=== PATIENT | female | born 1955 | race Hispanic/Latino ===

== ENCOUNTER 2016-12-30 14:42 | Inpatient (IN) | payer OTHER ==
--- NOTE | 2016-12-30 15:25 | ED PDOC ---
HPI: General Adult Time Seen by Provider: 12/30/16 15:00 Chief Complaint (Nursing): Weakness/Neurological Deficit Chief Complaint (Provider): Left sided numbness History Per: Patient History/Exam Limitations: no limitations Onset/Duration Of Symptoms: Days (2) Have you had recent travel within the past 21 days to any of the following countries: [place], [place], [place] or [place]?: No Current Symptoms Are (Timing): Still Present Severity: Moderate Additional History Per: Patient Additional Complaint(s): The pt is a 61yo female with PMHx of DM, hyperthyroidism, 3x hernia repair, left wrist surgery, presents to the ED for evaluation of left sided numbness for the past 2 days. Pt denies any pain or trauma to the area. She reports associated nausea but denies any vomiting, diarrhea. At present, pt offers no additional medical complaints. Of note, pt is crying in ED due to loss of insurance. PMD: None provided NIHSS Stroke Scale - Date/Time Evaluation Performed Date Performed: 12/30/16 Time Performed: 15:20 When Was NIHSS Performed: Baseline - How Severe is the Stroke Level of Consciousness: 0=Alert LOC to Questions: 0=Both comments correct LOC to commands: 0=Obeys both correctly Best Gaze: 0=Normal Visual: 0=No visual loss Facial: 0=Normal Motor Arm - Left: 0=No drift Motor Arm - Right: 0=No drift Motor Leg - Left: 0=No drift Motor Leg - Right: 0=No drift Limb Ataxia: 0=Absent Sensory: 0=Normal Best Language: 0=No aphasia Dysarthia: 0=Normal articulation Extinction & Inattention (Neglect): 0=Normal, no object Score: 0 rTPA Inclusion/Exclusion - Refusal of Treatment Patient Refused Treatment: No - Inclusion Criteria for Altepase Patient is 18 years or Older: Yes The Clinical Diagnosis of Ischemic Stroke That is Causing a Potentially Disabling Neurological Deficit: No Time of Onset is Well Established to be Less Than 270 Minute Before Treatment Would Begin: No Risk/Benefit Discussed With Patient/Family Member Present: No - Exclusion Criteria for Altepase Active Internal Bleeding: No Known Bleeding Diathesis Including but Not Limited to: Platelets Below 100,000/ mm,PTT Above 40 sec After Heparin Use, Current Use of Oral Anitcoagulant With INR Greater Than 1.7 or PT Greater Than 15 secs: No Evidence of an Intracranial Hemorrhage: No Evidence of Major Acute Infarct With Signs Greater Than 1/3 MCA Territory: No Suspicion of Subarachnoid Hemorrhage on Pretreatment Evaluation Even if CT Head Negative For Hemorrhage: No Past Medical History Reviewed: Historical Data, Nursing Documentation, Vital Signs Vital Signs: Last Vital Signs Temp 97.3 F L 12/31/16 12:20 Pulse 72 12/31/16 12:20 Resp 18 12/31/16 12:20 BP 138/83 12/31/16 12:20 Pulse Ox 94 L 12/31/16 12:20 - Medical History PMH: Diabetes, Hypothyroidism - Surgical History Surgical History: Hernia Repair ( x 3 as child) Other surgeries: left wrist surgery - Family History Family History: States: Unknown Family Hx - Living Arrangements Living Arrangements: With Family - Social History Current smoker - smoking cessation education provided: No Alcohol: None Drugs: Denies - Home Medications Home Medications: Ambulatory Orders Medication Instructions Recorded Cinnamon Bark [Cinnamon] 1 cap PO DAILY 12/30/16 Aspirin [Aspirin Chewable] 81 mg PO DAILY #30 chew 12/31/16 Atorvastatin [Lipitor] 80 mg PO HS #30 tab 12/31/16 Clopidogrel [Plavix] 75 mg PO DAILY #30 tab 12/31/16 Levothyroxine [Synthroid] 200 mcg PO DAILY #30 tab 12/31/16 Sitagliptin Phos/Metformin HCl 1 tab PO DAILY #30 tbmp.24hr 12/31/16 [Janumet Xr 50-1,000 mg Tablet] - Allergies Allergies/Adverse Reactions: Allergies Allergy/AdvReac Type Severity Reaction Status Date / Time No Known Allergies Allergy Verified 10/22/15 13:20 Review of Systems ROS Statement: Except As Marked, All Systems Reviewed And Found Negative Gastrointestinal: Positive for: Nausea. Negative for: Vomiting, Diarrhea Neurological: Positive for: Numbness (left sided body numbness) Physical Exam - Reviewed Nursing Documentation Reviewed: Yes Vital Signs Reviewed: Yes - Physical Exam Appears: Positive for: Well, Non-toxic, No Acute Distress Head Exam: Positive for: ATRAUMATIC, NORMAL INSPECTION, NORMOCEPHALIC Skin: Positive for: Normal Color, Warm, DRY Eye Exam: Positive for: EOMI, Normal appearance, PERRL Cardiovascular/Chest: Positive for: Regular Rate, Rhythm Respiratory: Positive for: Normal Breath Sounds. Negative for: Respiratory Distress Extremity: Positive for: Normal ROM, Other (5/5 motor strength in all extremities). Negative for: Deformity Neurologic/Psych: Positive for: Alert, Oriented. Negative for: Motor/Sensory Deficits - Laboratory Results Result Diagrams: 12/31/16 04:10 12/31/16 04:10 - ECG ECG: Positive for: Interpreted By Me, Viewed By Me ECG Rhythm: Positive for: Sinus Rhythm. Negative for: ST/T Changes Rate: 75 O2 Sat by Pulse Oximetry: 100 (RA) Pulse Ox Interpretation: Normal Medical Decision Making Medical Decision Making: Time: 1520 Impression: Left sided numbness Plan: -- CT Head -- EKG -- CMP -- Troponin -- CBC --Reassess Time: 1641 Swallow screen and Aspirin [address] Head Impression: Acute nonhemorrhagic infarct right thalamus/associated deep white matter. This represents a new finding compared to prior studies. New line communication of critical results: I discussed the findings directly with Dr. Genao at 16:41. -- Since pt has no insurance pt to be admitted under hospitalist. Paged neuro Dr. Nelson neurology roll tension tester Time: 1714 Dr. Nelson aware of case. Spoke to hospitalist, accepted patient for admission. dx left sided weakness, stroke pt aware of CT report and nee dto be hospitalized. Scribe Attestation: Documented by Cici Barrera acting as a scribe for Hailey Genao MD. Provider Attestation: All medical record entries made by the Scribe were at my direction and personally dictated by me. I have reviewed the chart and agree that the record accurately reflects my personal performance of the history, physical exam, medical decision making, and the department course for this patient. I have also personally directed, reviewed, and agree with the discharge instructions and disposition. Disposition - Clinical Impression Clinical Impression: Weakness of one side of body - Patient ED Disposition Is Patient to be Admitted: Yes - Disposition Disposition Time: 17:00 Condition: GOOD
[2016-12-30 15:43] LABS: BASO # 0.1 K/uL (0.0-0.2); BASO % 0.9 % (0.0-2.0); EOS # 0.2 K/uL (0.0-0.7); EOS % 1.8 % (0.0-4.0); HEMATOCRIT 39.7 % (34.0-47.0); LYMPH # 1.6 K/uL (1.0-4.3); LYMPH % 17.9 % (20.0-40.0); MEAN CELL VOLUME 83.3 fl (81.0-99.0); MEAN CORPUSCULAR HEMOGLOBIN 28.4 pg (27.0-31.0); MEAN PLATELET VOLUME 9.3 fl (7.2-11.7); MONO # 0.3 K/uL (0.0-0.8); MONO % 3.9 % (0.0-10.0); NEUT # 6.6 K/uL (1.8-7.0); NEUT % 75.5 % (50.0-75.0); NRBC % 0.1 % (0.0-0.0); RED CELL DISTRIBUTION WIDTH 14.5 % (11.5-14.5); WHITE BLOOD COUNT 8.8 K/uL (4.8-10.8)
--- NOTE | 2016-12-30 16:43 | CT ---
PROCEDURE: CT HEAD WITHOUT CONTRAST. HISTORY: L facial numbness for two days COMPARISON: 10/22/2015. TECHNIQUE: Axial computed tomography images were obtained through the head/brain without intravenous contrast. Coronal and sagittal reconstructed images. Radiation dose: Total exam DLP = 821.99 mGy-cm. FINDINGS: HEMORRHAGE: No intracranial hemorrhage. BRAIN: Focal area of diminished attenuation new finding in the right thalamus and associated deep white matter, please refer to series 4, image 26. This likely a nonhemorrhagic, acute infarct. VENTRICLES: Unremarkable. No hydrocephalus. CALVARIUM: Unremarkable. PARANASAL SINUSES: Unremarkable as visualized. No significant inflammatory changes. MASTOID AIR CELLS: Unremarkable as visualized. No inflammatory changes. OTHER FINDINGS: None. IMPRESSION: Acute nonhemorrhagic infarct right thalamus/associated deep white matter. This represents a new finding compared to prior studies. New line communication of critical results: I discussed the findings directly with Dr. Genao at 16:41.
[2016-12-30 18:06] LABS: ALB/GLOB RATIO 1.1 (1.0-2.1); ALKALINE PHOSPHATASE 84 U/L (38-126); ALT/SGPT 35 U/L (9-52); AST/SGOT 57 U/L (14-36); BILIRUBIN,TOTAL 0.7 mg/dl (0.2-1.3); BLOOD UREA NITROGEN 17 mg/dl (7-17); CALCIUM 9.6 mg/dL (8.4-10.2); CARBON DIOXIDE 22 mmol/L (22-30); CHLORIDE 105 mmol/L (98-107); GFR AFRICAN-AMERICAN > 60; GLUCOSE,RANDOM 131 mg/dL (65-105); SODIUM 142 mmol/l (132-148)
--- NOTE | 2016-12-30 18:13 | CP.PCM.HP ---
History of Present Illness - History of Present Illness History of Present Illness: CC: left sided weakness HPI: 61 year old female with PMH NIDDMII, Hypothyroid, Hyperlipidemia presents with a two day history of mild left sided numbness which started while she was walking, she noticed feeling off balance and being "wobbly", associated with mild facial droop and slight slurred speech. Today the patient noticed she was walking "crooked" and came in for evaluation. On exam patient is awake, alert, oriented x3, no aphasia, has 4/5 strength in all 4 extremities, no pronator drift, no visual defects, does have a very slight L facial droop and slight slurred speech, in addition to mild loss of sensation on the L side face/ extremities, NIHSS 3. CT head Acute nonhemorrhagic infarct R thalamus/ associated with deep white matter. Neurology consult called in ER, Dr. Nelson appreciated and followed. +ASA, plavix, continue Statin. Vitals stable, NAD. ROS: per HPI all other systems neg by me PMSH: NIDDMII, Hypothyroid, Hyperlipidemia FH: denies SH: denies tobacco etoh ivdu Meds: Per reconciliation Allergies: NKDA Vitals Temp Pulse Resp BP Pulse Ox 98.1 F 75 17 140/76 100 12/30/16 14:49 12/30/16 17:35 12/30/16 17:35 12/30/16 17:35 12/30/16 18:06 Exam GEN: WDWN, alert, awake, cooperative HEENT: EOMI, PERRL, NCAT Neck: soft, supple, no lymphadenopathy Heart: RRR +S1S2 no MRG Lung: CTAB no wheezes, rales, rhonchi Abd: soft, nontender, no mass, no HSM, BS x4 Ext: +pedal pulses, no edema Neuro: awake, alert, oriented x3, no aphasia, has 4/5 strength in all 4 extremities, no pronator drift, no visual defects, does have a very slight L facial droop and slight slurred speech, in addition to mild loss of sensation on the L side face/extremities, NIHSS 3 Skin: warm, dry Psych: normal mood, normal affect labs 12/30/16 15:30 12/30/16 17:[address] head Acute nonhemorrhagic infarct R thalamus/associated with deep white matter. ACTIVE MEDS Atorvastatin [Lipitor] 80 mg PO HS Insulin Lispro [humALOG] See Protocol SC ACHS Aspirin [Aspirin Chewable] 81 mg PO DAILY Clopidogrel [Plavix] 75 mg PO DAILY Enoxaparin [Lovenox] 40 mg SC DAILY Levothyroxine [Synthroid] 150 mcg PO DAILY MetFORMIN [glucOPHAGE] 1,000 mg PO DAILY SITagliptin [Januvia] 50 mg PO DAILY ASSESSMENT AND PLAN 61 year old female with PMH NIDDMII, Hypothyroid, Hyperlipidemia presents with a two day history of mild left sided numbness which started while she was walking, she noticed feeling off balance and being "wobbly", associated with mild facial droop and slight slurred speech. Today the patient noticed she was walking "crooked" and came in for evaluation. On exam patient is awake, alert, oriented x3, no aphasia, has 4/5 strength in all 4 extremities, no pronator drift, no visual defects, does have a very slight L facial droop and slight slurred speech, in addition to mild loss of sensation on the L side face/ extremities, NIHSS 3. CT head Acute nonhemorrhagic infarct R thalamus/ associated with deep white matter. Neurology consult called in ER, Dr. Nelson appreciated and followed. +ASA, plavix, continue Statin. Vitals stable, NAD. Acute CVA very slight L facial droop and slight slurred speech, in addition to mild loss of sensation on the L side face/extremities NIHSS 3 Neurology consult appreciated and followed CT Head Acute nonhemorrhagic infarct R thalamus/associated with deep white matter. ASA 81 MG PO DAILY PLAVIX 75 MG PO DAILY LIPITOR 80 MG PO DAILY PT/OT/SPEECH therapy NIDDMII stable diabetic diet continue januvia and metformin accuchecks ISS Hypothyroid stable continue levothyroxine Hyperlipidemia stable continue LIPITOR 80 mg po daily DVT ppx lovenox Present on Admission - Present on Admission Any Indicators Present on Admission: No Past Patient History - Past Social History Alcohol: None Drugs: Denies - CARDIAC Hx Cardiac Disorders: No - PULMONARY Hx Respiratory Disorders: No - NEUROLOGICAL Hx Neurological Disorder: No - ENDOCRINE/METABOLIC Hx Hypothyroidism: Yes - PSYCHIATRIC Hx Substance Use: No - SURGICAL HISTORY Hx Surgeries: No Other/Comment: Hernia repair - ANESTHESIA Hx Anesthesia: Yes Hx Anesthesia Reactions: No Meds Allergies/Adverse Reactions: Allergies Allergy/AdvReac Type Severity Reaction Status Date / Time No Known Allergies Allergy Verified 10/22/15 13:20 Results - Vital Signs Recent Vital Signs: Last Vital Signs Temp 98.1 F 12/30/16 14:49 Pulse 75 12/30/16 17:35 Resp 17 12/30/16 17:35 BP 140/76 12/30/16 17:35 Pulse Ox 97 12/30/16 17:35 - Labs Result Diagrams: 12/30/16 15:30
--- NOTE | 2016-12-30 18:29 | RAD ---
HISTORY: Stroke. Technique: Single view portable erect @ 17:30. COMPARISON: 10/09/2011. FINDINGS: LUNGS: No active pulmonary disease. PLEURA: No significant pleural effusion identified, no pneumothorax apparent. CARDIOVASCULAR: Cardiomegaly. No evidence of acute, significant cardiovascular disease. OSSEOUS STRUCTURES: No significant abnormalities. VISUALIZED UPPER ABDOMEN: Normal. OTHER FINDINGS: None. IMPRESSION: No active disease. No significant interval change compared to the prior examination(s).
--- NOTE | 2016-12-30 20:37 | CON ---
DATE: 12/30/2016 REASON FOR CONSULTATION: Stroke. CHIEF COMPLAINT: The patient was brought in to [facility] with a history of left-sided numbness and weakness. From neurological point of view, I was called in to evaluate her for further management. HISTORY OF PRESENT ILLNESS: The patient is a 61-year-old right-handed female in her usual state of health, presenting with subacute process of lightheadedness, dizziness, losing balance. She did not take herself. For the last 2 days, she has noticed herself left-sided numbness and feels like drunk while she is walking. She denies any speech problems. She denies any loss of consciousness. She denies any involuntary movements associating with this problem. PAST MEDICAL HISTORY: Diabetes mellitus, hypertension, dyslipidemia, hypothyroidism. ALLERGIES: No known allergies. PERSONAL HISTORY: No history of smoking or alcohol use. REVIEW OF SYSTEMS: As per H and P. MEDICATIONS: Aspirin, metformin, insulin, Januvia, Lipitor, Lovenox and Synthroid. PHYSICAL EXAMINATION: VITAL SIGNS: Blood pressure 119/71, mean arterial pressure is 70, respiratory rate 16, temperature afebrile. NECK: Supple. No carotid bruit. HEART: Sounds regular. CHEST: Fair air entry. EXTREMITIES: No edema in legs. NEUROLOGIC EXAMINATION: MENTAL STATUS EXAMINATION: She is examined in the presence of her family members. She is awake, alert, oriented to person, place, and time. Speech is clear. Naming, repetition, fluency, comprehension all within normal. CRANIAL NERVE EXAMINATION: Visual field intact, pupils reactive to light. Extraocular movements are normal. No nystagmus, no facial sensory deficit. Mild facial asymmetry manifesting as a flattening of the left nasolabial fold. Hearing is normal. Tongue is midline. Good gag. MOTOR EXAMINATION: Outstretched hands with eyes closed, no drift noted. Power is symmetric on either side. DEEP TENDON REFLEXES: Biceps, brachioradialis, triceps, knees are 1+. Both ankles are absent. Plantars are upgoing on the left side, right side was downgoing. SENSORY EXAMINATION: Significantly decreased pinprick and pain over her left arm and the left leg. GAIT: She was not able to march in one place. She was leaning to the left side. CONCLUSION: Upon reviewing her history and neurological examination, the patient is presenting with right subcortical dysfunction manifesting with hemisensory deficit and poor tandem. 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 Considering her risk factors including age, sex, high blood pressure, diabetes mellitus, that is all related to small vessel disease. WORKUP: CT of the head reviewed, showed right thalamic infarct. EKG normal sinus rhythm. BLOOD WORKUP: WBC 8.8, hemoglobin 13.5, hematocrit 39.7, platelets 237. Sodium 142, potassium 4.0, chloride 105, bicarbonate 22, BUN 17, creatinine 1.0 , GFR more than 60, calcium of 9.6. RECOMMENDATIONS: 1. I agree with aspirin and Plavix with statin and angiotensin receptor blockers to stabilize neurovascular endothelium. 2. Carotid Doppler/echo/EEG and MRI of the brain is also scheduled. 3. Out of bed and physical therapy. 4. Diabetic control, weight control and patient may need a polysomnogram to rule out hidden sleep related breathing disorder, which can be done as an outpatient. The patient's condition has been well discussed with the family members present. The patient will be followed closely with you. aSji Nelson MD cc: [id number] TT: 12/30/2016 20:37:14 Confirmation # [id number] Dictation # [id number] magalys LORD
[2016-12-30 21:35] LABS: THYROID STIMULATING HORMONE 26.4 mIU/ML (0.46-4.68)
[2016-12-30] MEDS: Insulin Lispro (humaLOG) 100 Units/ml Inj SC SCH (22:00)
[2016-12-31 05:28] LABS: BLOOD UREA NITROGEN 16 mg/dl (7-17); CALCIUM 9.3 mg/dL (8.4-10.2); CARBON DIOXIDE 26 mmol/L (22-30); CHLORIDE 101 mmol/L (98-107); GFR AFRICAN-AMERICAN > 60; GLUCOSE,RANDOM 143 mg/dL (65-105); SODIUM 135 mmol/l (132-148)
[2016-12-31 05:35] LABS: MEAN CELL VOLUME 83.7 fl (81.0-99.0); MEAN CORPUSCULAR HEMOGLOBIN 27.8 pg (27.0-31.0); MEAN CORPUSCULAR HGB CONC 33.3 g/dL (33.0-37.0); RED CELL DISTRIBUTION WIDTH 14.3 % (11.5-14.5); WHITE BLOOD COUNT 7.1 K/uL (4.8-10.8)
[2016-12-31] MEDS: Insulin Lispro (humaLOG) 100 Units/ml Inj SC SCH (06:43)
[2016-12-31 07:02] LABS: HOMOCYSTEINE 17.6 umol/L (<10.4)
[2016-12-31 08:15] VITALS: RESP 18
[2016-12-31] MEDS ORDERED: METFORMIN HCL PO SCH (09:00)
[2016-12-31] MEDS ORDERED: SITAGLIPTIN PHOS PO SCH (09:00)
[2016-12-31] MEDS ORDERED: Levothyroxine 150 MCG TAB PO SCH (09:00)
[2016-12-31] MEDS ORDERED: [UNRECOGNIZED DRUG - OTHER] PO SCH (09:00)
[2016-12-31] MEDS ORDERED: Enoxaparin 40 mg Syringe SC SCH (09:00)
--- NOTE | 2016-12-31 09:59 | MRI ---
PROCEDURE: MRI BRAIN WITHOUT CONTRAST HISTORY: stroke, numbness COMPARISON: Comparison is made to the previous CT dated 12/30/2016 TECHNIQUE: Multiplanar, multisequence MR images of the brain were obtained without intravenous contrast enhancement. FINDINGS: HEMORRHAGE: None DWI: There is focal diffusion restriction at the right thalamus consistent with acute/early subacute infarct. BRAIN PARENCHYMA: Small foci of encephalomalacia again seen at the left basal ganglia/ internal capsule suggestive of chronic lacunar infarcts. Mild atrophy and mild chronic microvascular white matter ischemic disease are again seen. VENTRICLES: Unremarkable. No hydrocephalus. CRANIUM: Unremarkable. ORBITS: Grossly unremarkable. PARANASAL SINUSES/MASTOIDS: No evidence of sinusitis. Partial opacification of the right mastoid. VASCULAR SYSTEM: Skull base flow voids intact. OTHER FINDINGS: None. IMPRESSION: Focal diffusion restriction at the right thalamus consistent with acute/ early subacute infarct . Old lacunar infarcts at the left basal ganglia. Mild atrophy and mild chronic microvascular white matter ischemic disease.
--- NOTE | 2016-12-31 10:22 | CP.PCM.DIS ---
Provider - Provider Date of Admission: 12/30/16 17:10 Attending physician: Evelyn Ramirez DO Primary care physician: None Consults: Neuro consult PT/Ot consult Time Spent in preparation of Discharge (in minutes): 20 Hospital Course - Lab Results Lab Results: Most Recent Lab Values WBC 7.1 K/uL (4.8-10.8) 12/31/16 04:10 RBC 4.42 Mil/uL (3.80-5.20) 12/31/16 04:10 Hgb 12.3 g/dL (12.0-16.0) 12/31/16 04:10 Hct 37.0 % (34.0-47.0) 12/31/16 04:10 MCV 83.7 fl (81.0-99.0) 12/31/16 04:10 MCH 27.8 pg (27.0-31.0) 12/31/16 04:10 MCHC 33.3 g/dL (33.0-37.0) 12/31/16 04:10 RDW 14.3 % (11.5-14.5) 12/31/16 04:10 Plt Count 200 K/uL (130-400) 12/31/16 04:10 MPV 9.3 fl (7.2-11.7) 12/30/16 15:30 Neut % (Auto) 75.5 % (50.0-75.0) H 12/30/16 15:30 Lymph % (Auto) 17.9 % (20.0-40.0) L 12/30/16 15:30 [place] % (Auto) 3.9 % (0.0-10.0) 12/30/16 15:30 Eos % (Auto) 1.8 % (0.0-4.0) 12/30/16 15:30 Baso % (Auto) 0.9 % (0.0-2.0) 12/30/16 15:30 Neut # 6.6 K/uL (1.8-7.0) 12/30/16 15:30 Lymph # 1.6 K/uL (1.0-4.3) 12/30/16 15:30 [place] # 0.3 K/uL (0.0-0.8) 12/30/16 15:30 Eos # 0.2 K/uL (0.0-0.7) 12/30/16 15:30 Baso # 0.1 K/uL (0.0-0.2) 12/30/16 15:30 ESR 20 mm/hr (0-30) 12/30/16 20:06 Sodium 135 mmol/l (132-148) 12/31/16 04:10 Potassium 4.0 MMOL/L (3.6-5.0) 12/31/16 04:10 Chloride 101 mmol/L (98-107) 12/31/16 04:10 Carbon Dioxide 26 mmol/L (22-30) 12/31/16 04:10 Anion Gap 12 (10-20) 12/31/16 04:10 BUN 16 mg/dl (7-17) 12/31/16 04:10 Creatinine 1.1 mg/dL (0.7-1.2) 12/31/16 04:10 Est GFR ( Amer) > 60 12/31/16 04:10 Est GFR (Non-Af Amer) 51 12/31/16 04:10 POC Glucose (mg/dL) 145 mg/dL (65-110) H 12/31/16 05:36 Random Glucose 143 mg/dL (65-105) H 12/31/16 04:10 Calcium 9.3 mg/dL (8.4-10.2) 12/31/16 04:10 Total Bilirubin 0.7 mg/dl (0.2-1.3) 12/30/16 17:54 AST 57 U/L (14-36) H 12/30/16 17:54 ALT 35 U/L (9-52) 12/30/16 17:54 Alkaline Phosphatase 84 U/L (38-126) 12/30/16 17:54 Troponin I < 0.0120 ng/mL (0.00-0.120) 12/30/16 17:54 Total Protein 8.0 G/DL (6.3-8.2) 12/30/16 17:54 Albumin 4.2 g/dL (3.5-5.0) 12/30/16 17:54 Globulin 3.8 gm/dL (2.2-3.9) 12/30/16 17:54 Albumin/Globulin Ratio 1.1 (1.0-2.1) 12/30/16 17:54 Vitamin B12 279 pg/mL (239-931) 12/30/16 17:53 Homocysteine 17.6 umol/L ( <10.4) H 12/30/16 20:06 TSH 3rd Generation 26.40 mIU/ML (0.46-4.68) H 12/30/16 17:53 - Hospital Course Hospital Course: 61 year old female with PMH NIDDMII, Hypothyroid, Hyperlipidemia presented with two day history of mild left sided numbness which started while she was walking , she noticed feeling off balance and being "wobbly", associated with mild facial droop and slight slurred speech. Today the patient noticed she was walking "crooked" and came in for evaluation. On exam patient is awake, alert, oriented x3, no aphasia, has 4/5 strength in all 4 extremities, no pronator drift, no visual defects, did have a very slight L facial droop and slight slurred speech, in addition to mild loss of sensation on the L side face/ extremities, NIHSS 3. CT head showed Acute nonhemorrhagic infarct R thalamus/ associated with deep white matter disease . Neurology consult called in ER, Dr. Nelson appreciated and followed. Patient started on +ASA, plavix, Statin. MRI brain showed : Focal diffusion restriction at the right thalamus consistent with acute/ early subacute infarct . Old lacunar infarcts at the left basal ganglia. Mild atrophy and mild chronic microvascular white matter ischemic disease. Patient doing well, hemodynamically stable, facial drop resolved . PT / Ot consulted . Patient will be discharged home. physical therapy as out patient. Counselled on diet , exercise complinace with medications. not to return to work for 2 weeks Follow upw [facility] in [address] Head Acute nonhemorrhagic infarct R thalamus/associated with deep white matter. Continue ASA ,PLAVIX , statin 2.NIDDMII diabetic diet continue januvia and metformin 3.Hypothyroid uncontrolled Incresaed Synthroid to 200 mcg PO daily continue 4.Hyperlipidemia uncontrolled Cholesterol 347 cholesterol 451 LDL 190 continue LIPITOR 80 mg po daily Discharge Exam - Head Exam Head Exam: ATRAUMATIC, NORMAL INSPECTION, NORMOCEPHALIC - Eye Exam Eye Exam: EOMI, Normal appearance, PERRL Pupil Exam: NORMAL ACCOMODATION - ENT Exam ENT Exam: Mucous Membranes Moist, Normal Exam - Neck Exam Neck exam: Full Rom, Normal Inspection - Respiratory Exam Respiratory Exam: Clear to PA & Lateral, NORMAL BREATHING PATTERN. absent: Rales, Rhonchi, Wheezes - Cardiovascular Exam Cardiovascular Exam: REGULAR RHYTHM, RRR, +S1, +S2. absent: JVD - GI/Abdominal Exam GI & Abdominal Exam: Normal Bowel Sounds, Soft. absent: Distended, Guarding, Rebound, Tenderness - Rectal Exam Rectal Exam: Deferred - Extremities Exam Extremities exam: normal capillary refill, normal inspection, pedal pulses present - Back Exam Back exam: NORMAL INSPECTION - Neurological Exam Neurological exam: Alert, CN II-XII Intact, Oriented x3, Reflexes Normal Additional comments: left side numbness - Psychiatric Exam Psychiatric exam: Normal Affect, Normal Mood - Skin Skin Exam: Dry, Intact, Normal Color, Warm Discharge Plan - Discharge Medications Prescriptions: Aspirin [Aspirin Chewable] 81 mg PO DAILY #30 chew Sitagliptin Phos/Metformin HCl [Janumet Xr 50-1,000 mg Tablet] 1 tab PO DAILY # 30 tbmp.24hr Atorvastatin [Lipitor] 80 mg PO HS #30 tab Clopidogrel [Plavix] 75 mg PO DAILY #30 tab Levothyroxine [Synthroid] 200 mcg PO DAILY #30 tab - Follow Up Plan Condition: GOOD Disposition: HOME/ ROUTINE Patient education suggested?: Yes Instructions: Ischemic Stroke (DC) Additional Instructions: Do not return to work for 2 weeks physical therapy as outpatient Referrals: [facility] [Outside] Clinical Quality Measures - CQM - Stroke Antithrombotic Prescribed: Yes Anticoagulation Prescribed for Atrial Flutter, Atrial Fibrillation and History of:: Not Applicable Statin prescribed: Yes
[2016-12-31 11:57] LABS: CHOLESTEROL 451 mg/dL (0-199)
[2016-12-31 12:20] VITALS: BP 138/83; TEMP 97.3
--- NOTE | 2017-01-03 17:12 | CARD ---
APPROVED REPORT EKG Measurement Heart [id number] <Conclusion> Normal sinus rhythm Cannot rule out Anterior infarct, age undetermined T wave abnormality, consider lateral ischemia Abnormal ECG
[2017-01-04 05:30] VITALS: PULSE 75; O2SAT 100
== END 2016-12-31 13:20 | disposition home or self-care (01) | DRG 14 ==
LOC: H.ER 14:42 → H.ERHOLD 17:10 → H.TEL 21:18
PROVIDERS: ADMIT Student in an Organized Health Care Education/Training Program; ATTEND Student in an Organized Health Care Education/Training Program
DX: I63.9 Cerebral infarction, unspecified (principal); I10 Essential (primary) hypertension; E03.9 Hypothyroidism, unspecified; E11.9 Type 2 diabetes mellitus without complications; R29.810 Facial weakness; R47.81 Slurred speech; E78.5 Hyperlipidemia, unspecified; Z79.84 Long term (current) use of oral hypoglycemic drugs